=== PATIENT | male | born 1935 | race Native Hawaiian/Other Pacific Islander ===

== ENCOUNTER 2020-05-15 05:22 | Inpatient (IN) | payer OTHER ==
[~2020-05-15] VITALS: Ht 182.9 cm; Wt 47.9 kg
[2020-05-15] VITALS (15 sets, daily range): BP systolic 119–170; BP diastolic 55–97; TEMP 97.3–99.3; Ht 182.9 cm; Wt 47.9 kg
[2020-05-15] MEDS ORDERED: HYDR10TA47 PO (05:50)
[2020-05-15] MEDS ORDERED: PREDNISONE20 MG PO (05:51)
[2020-05-15] MEDS ORDERED: AZIT250T3 PO (05:52)
[2020-05-15] MEDS ORDERED: ZINC50 M1 PO (05:53)
[2020-05-15] MEDS ORDERED: VITAMIN D32000 UNI1 PO (06:01)
[2020-05-15 06:11] LABS: PLATELET COUNT 285 K/uL (142-355)
[2020-05-15 06:20] LABS: POTASSIUM 3.8 mmol/L (3.6-5.2)
[2020-05-15 06:52] LABS: PARTIAL THROMBOPLASTIN TIME 30.8 SECONDS (24.5-33.6)
[2020-05-16] VITALS (24 sets, daily range): BP systolic 119–152; BP diastolic 60–96; TEMP 97.1–98.4
[2020-05-16 07:15] LABS: PLATELET COUNT 319 K/uL (142-355)
[2020-05-16 07:48] LABS: POTASSIUM 3.8 mmol/L (3.6-5.2)
[2020-05-17] VITALS (26 sets, daily range): BP systolic 103–154; BP diastolic 45–106; TEMP 97.4–98
[2020-05-17 06:14] LABS: PLATELET COUNT 348 K/uL (142-355)
[2020-05-17 06:34] LABS: POTASSIUM 3.1 mmol/L (3.6-5.2)
[2020-05-18] VITALS (22 sets, daily range): BP systolic 97–179; BP diastolic 52–118; TEMP 97.4–98.6
[2020-05-18 05:39] LABS: PLATELET COUNT 294 K/uL (142-355)
[2020-05-18 06:02] LABS: POTASSIUM 3.5 mmol/L (3.6-5.2)
[2020-05-19] VITALS (22 sets, daily range): BP systolic 99–198; BP diastolic 26–97; TEMP 96.6–98.6
[2020-05-19 09:05] LABS: PLATELET COUNT 333 K/uL (142-355)
[2020-05-19 10:28] LABS: POTASSIUM 4.5 mmol/L (3.6-5.2)
[2020-05-20] VITALS (25 sets, daily range): BP systolic 97–161; BP diastolic 55–92; TEMP 97.8–99.2
[2020-05-20 06:08] LABS: PLATELET COUNT 279 K/uL (142-355)
[2020-05-20 06:12] LABS: POTASSIUM 5.1 mmol/L (3.6-5.2)
[2020-05-21] VITALS (22 sets, daily range): BP systolic 94–142; BP diastolic 48–89; TEMP 97.3–98.3
[2020-05-21 05:58] LABS: POTASSIUM 4.6 mmol/L (3.6-5.2)
[2020-05-21 06:23] LABS: PLATELET COUNT 220 K/uL (142-355)
[2020-05-22] VITALS (23 sets, daily range): BP systolic 99–185; BP diastolic 40–93; TEMP 98.2–99
[2020-05-22 05:52] LABS: PLATELET COUNT 462 K/uL (142-355)
[2020-05-22 06:05] LABS: POTASSIUM 3.9 mmol/L (3.6-5.2)
[2020-05-23] VITALS (12 sets, daily range): BP systolic 123–161; BP diastolic 52–98; TEMP 98.3–98.7
[2020-05-23 05:35] LABS: PLATELET COUNT 512 K/uL (142-355)
[2020-05-23 05:49] LABS: POTASSIUM 3.5 mmol/L (3.6-5.2)
== END 2020-05-23 13:15 | disposition short-term general hospital (02) | DRG 177 ==
LOC: ED 05:32 → ICU 07:00
PROVIDERS: ADMIT Hospitalist; ATTEND Internal Medicine Endocrinology, Diabetes & Metabolism
DX: U07.1 COVID-19 (principal); J18.8 Other pneumonia, unspecified organism; E43 Unspecified severe protein-calorie malnutrition; A41.89 Other specified sepsis; G92 Toxic encephalopathy; R64 Cachexia; R62.7 Adult failure to thrive; N28.9 Disorder of kidney and ureter, unspecified
CPT/HCPCS: 36415; 36600; 80053; 80202; 80320; 81000; 82550; 82805; 83605; 83735; 83880; 84484; 85027; 85610; 85730; 87040; 87070; 87077; 87186; 87205; 87502; 87635; 87651; 93005; 94760; 96360; 96361; 96365; 96366; 99284; 99285; J0132; J0456; J1100; J1650; J1940; J1956; J2060; J2185; J2270; J3370; J3480; J3490; U0003

== ENCOUNTER 2020-05-23 13:15 | Inpatient (IN) | payer OTHER ==
[~2020-05-23] VITALS: Ht 182.9 cm; Wt 44.2 kg
[~2020-05-23 13:15] MED LIST: AZIT250T3 PO; HYDR10TA47 PO; PREDNISONE20 MG PO; VITAMIN D32000 UNI1 PO; ZINC50 M1 PO
[2020-05-23 15:46] VITALS: BP 144/81; TEMP 98.8; Ht 182.9 cm; Wt 44.2 kg
[2020-05-23 20:00] VITALS: BP 150/66; TEMP 98.9
[2020-05-24 20:00] VITALS: BP 81/46; TEMP 98.8
[2020-05-25 08:00] VITALS: BP 136/84; TEMP 99.3
== END 2020-05-25 19:04 | disposition home health service (06) | DRG 93 ==
LOC: MED/SURG 13:15
PROVIDERS: ADMIT Internal Medicine; ATTEND Internal Medicine
DX: G92 Toxic encephalopathy (principal); Z51.5 Encounter for palliative care
CPT/HCPCS: 94760; J2060; J2270